=== PATIENT | male | born 1970 | race Caucasian/White ===

== ENCOUNTER 2017-02-20 06:47 | Emergency (ER) | payer BC, OTHER ==
[~2017-02-20] VITALS: Ht 188 cm; Wt 98.0 kg
[2017-02-20 06:49] VITALS: Ht 188 cm; Wt 98.0 kg
[2017-02-20] MEDS ORDERED: LORAZEPAM 2 MG INJ IV STA (07:18)
--- NOTE | 2017-02-20 08:03 | RADRPT ---
PROCEDURE: CT brain without contrast CLINICAL INDICATION: Seizure with head injury TECHNIQUE: CT of the brain without contrast performed on a multidetector CT scanner, with multiplan ar reformats. One or more of the following dose reduction techniques were used: Automated exposure control, adjustment in mA and / or kV according to patient size, use of iterative reconstructive francis hnique. CTDIvol = 45 mGy; DLP = 810 mGy-cm. COMPARISON: None available FINDINGS: There is encephalomalacia with associated minimal calcification in the left frontoparietal region wi th adjacent gliosis. No acute intracranial hemorrhage is identified. No extra-axial fluid collecti on is seen. There is no mass effect. No midline shift is identified. Ventricles and sulci are mildly enlarged compatible with volume loss. Kohler-white differentiation is otherwise preserved. Osseous structures are unremarkable. Right mastoid air cells are partially opacified. IMPRESSION: 1. No evidence of acute intracranial pathology. 2. Left frontoparietal encephalomalacia. 3. Mild volume loss. RPTAT: VV .Elias Tirado MD, MD Date Time Electronically viewed and signed by .Elias Tirado MD, on 02/20/2017 08:03 .O/
[2017-02-20 08:37] LABS: ADD SCAN DIFF NO
[2017-02-20 08:39] LABS: BASOPHILS % 0.2 % (0.0-2.0); EOSINOPHILS # 0.1 10^3/ul (0.0-0.5); EOSINOPHILS % 1.7 % (0.0-7.0); HEMATOCRIT 34.1 % (42.0-52.0); HEMOGLOBIN 10.7 g/dl (14.0-18.0); LYMPHOCYTES # 1.1 10^3/ul (0.8-2.9); LYMPHOCYTES % 16.5 % (15.0-51.0); MEAN CORPUSCULAR HEMOGLOBIN 30.2 pg (29.0-33.0); MEAN CORPUSCULAR HGB CONC 31.4 g/dl (32.0-37.0); MEAN CORPUSCULAR VOLUME 96.3 fl (82.0-101.0); MEAN PLATELET VOLUME 9.6 fl (7.4-10.4); MONOCYTE # 0.8 10^3/ul (0.3-0.9); MONOCYTES % 11.6 % (0.0-11.0); NEUTROPHIL # 4.6 10^3/ul (1.6-7.5); NEUTROPHILS % 69.5 % (39.0-77.0); PLATELET COUNT 258 10^3/UL (140-415); RED BLOOD COUNT 3.54 10^6/ul (4.70-6.10); RED CELL DISTRIBUTION WIDTH 15.8 % (11.5-14.5); WHITE BLOOD COUNT 6.7 10^3/ul (4.8-10.8)
[2017-02-20 08:51] LABS: CREATININE 0.57 mg/dl (0.61-1.24)
[2017-02-20 08:52] LABS: CALCIUM 9.4 mg/dl (8.4-10.2)
--- NOTE | 2017-02-20 09:08 | ERD ---
ER Documentation Chief Complaint Date/Time DATE: 02/20/17 TIME: 08:56 Chief Complaint had seizure, hit head, no ko HPI 46-year-old male with a history of CVA with right-sided deficits and seizure disorder, presenting after a seizure at his board and care. Patient is very anxious and angry and keeps yelling at me. Every time I ask him a question, he states "I don't know, I just had a seizure. " For the lady with him, she owns the house where he lives. He fell out of bed and had a seizure. He does take Keppra for seizures. Patient manages his own medications. He is unable to tell me whether he took any of his medications today. ROS Review of systems is limited secondary to patient's mental status Medications Home Meds Unable to Obtain Active Prescriptions or Reported Meds Allergies Allergies: Coded Allergies: coumarin (Unverified Allergy, Unknown, PT SAYS HES ALLERGIC, 02/20/17) PMhx/Soc Medical and Surgical Hx: Unable to obtain History of Surgery: No Anesthesia Reaction: No Hx Neurological Disorder: Yes (CVA, seizure disorder) Hx Respiratory Disorders: No Hx Cardiac Disorders: No Hx Psychiatric Problems: Yes (anxiety, depression) Hx Miscellaneous Medical Probl: No Hx Alcohol Use: No Hx Substance Use: No Hx Tobacco Use: No Smoking Status: Never smoker FmHx Family History: other (unable to obtain) Physical Exam Vitals Vital Signs Date Time Temp Pulse Resp B/P Pulse Ox O2 Delivery O2 Flow Rate FiO2 02/20/17 06:49 98.1 125 24 152/68 99 Physical Exam Const: Agitated, in no apparent distress, nontoxic Head: No hematomas, multiple superficial facial abrasions on forehead and bridge of nose. No bony tenderness to palpation Eyes: Normal Conjunctiva, PERRLA, EOMI ENT: Normal External Ears, Nose and Mouth. Neck: Full range of motion..~ No meningismus. Resp: Clear to auscultation bilaterally Cardio: Regular rate and rhythm, no murmurs Abd: Soft, non tender, non distended. Normal bowel sounds Skin: No petechiae or rashes Back: No midline or flank tenderness Ext: No cyanosis, or edema. Contracted right upper extremity Neur: Awake and alert, oriented to self and place, moving all other extremities except the right upper extremity Psych: Anxious, agitated Result Diagram: 02/20/17 0825 02/20/17 0825 Results 24 hrs Laboratory Tests Test 02/20/17 08:25 02/20/17 08:30 02/20/17 10:10 White Blood Count 6.710^3/ul Red Blood Count 3.5410^6/ul Hemoglobin 10.7g/dl Hematocrit 34.1% Mean Corpuscular Volume 96.3fl Mean Corpuscular Hemoglobin 30.2pg Mean Corpuscular Hemoglobin Concent 31.4g/dl Red Cell Distribution Width 15.8% Platelet Count 36143^3/UL Mean Platelet Volume 9.6fl Neutrophils % 69.5% Lymphocytes % 16.5% Monocytes % 11.6% Eosinophils % 1.7% Basophils % 0.2% Nucleated Red Blood Cells % 0.0/100WBC Neutrophils # 4.610^3/ul Lymphocytes # 1.110^3/ul Monocytes # 0.810^3/ul Eosinophils # 0.110^3/ul Basophils # 0.010^3/ul Nucleated Red Blood Cells # 0.010^3/ul Sodium Level 140mmol/L Potassium Level 4.0mmol/L Chloride Level 103mmol/L Carbon Dioxide Level 26mmol/L Anion Gap 15 Blood Urea Nitrogen 15mg/dl Creatinine 0.57mg/dl Glucose Level 96mg/dl Calcium Level 9.4mg/dl Bedside Glucose 82mg/dL Urine Color LT. YELLOW Urine Clarity CLEAR Urine pH 6.5 Urine Specific [place] <=1.005 Urine Ketones NEGATIVE Urine Nitrite NEGATIVE Urine Bilirubin NEGATIVE Urine Urobilinogen 1.0 E.U./dL Urine Leukocyte Esterase NEGATIVE Urine Hemoglobin NEGATIVE Urine Glucose NEGATIVE% Urine Total Protein NEGATIVE Current Medications Medications (Trade) Dose Ordered Sig/Angi Route PRN Reason Start Time Stop Time Status Last Admin Dose Admin Lorazepam (Ativan) 1 mg ONCE STAT IV 02/20/17 07:18 02/20/17 07:19 DC 02/20/17 07:36 Levetiracetam (Keppra) 500 mg ONCE ONCE PO 02/20/17 09:30 02/20/17 09:31 DC 02/20/17 09:48 Metoclopramide HCl (Reglan) 10 mg ONCE ONCE IV 02/20/17 10:30 4/17/17 10:30 DC Procedures/MDM EMERGENT LABS AND DIAGNOSTIC STUDIES: Lab Results above were reviewed and interpreted by me. CBC and BMP within normal limits Urinalysis does not show evidence of infection 12-lead EKG was interpreted by Lupe Bah MD: Normal Sinus Rhythm with ventricular rate of 86 beats per minute Normal axis Normal intervals Anterior ST elevations, pattern suggestive of benign early repol No acute ST or T wave changes suggestive of acute ischemia or STEMI. Radiology Results as interpreted by Radiology below were reviewed by Stephany Bah MD: CT head: No acute abnormalities, left frontoparietal encephalomalacia Initial Nursing notes reviewed. Previous Medical Records requested via the Electronic Health Record. EMERGENCY DEPARTMENT COURSE / MEDICAL DECISION MAKING: Patient with a known seizure disorder is presenting with an episode of a breakthrough seizure. He is afebrile and vitals are stable. He has back to his normal mental status per caregiver. Patient has no current complaints. Given his agitation, 1 mg of Ativan was given as the patient takes this daily at home. His symptoms improved. Labs didn't show any acute abnormalities. Given his head trauma from the seizure, a CT head was done and was normal. There does not seem to be any obvious trigger to his seizure today. Keppra was given. Patient remained seizure-free while in the ED. He was observed for over 4 hours. I think the patient is stable for discharge back to his facility at this time. Return precautions were given. Departure Diagnosis: Primary Impression: Breakthrough seizure Condition: Stable RASHID BAH MD Feb 20, 2017 09:07
[2017-02-20] MEDS ORDERED: LEVETIRACETAM 500 MG TAB PO ONE (09:30)
[2017-02-20] MEDS ORDERED: METOCLOPRAMIDE 10 MG INJ IV ONE (10:30)
[2017-02-20 10:59] LABS: ADD UMIC NO; URINE BILIRUBIN (Dip) NEGATIVE (NEGATIVE); URINE BLOOD (Dip) NEGATIVE (NEGATIVE); URINE COLOR LT. YELLOW (YELLOW); URINE GLUCOSE (Dip) NEGATIVE (NEGATIVE); URINE KETONES (Dip) NEGATIVE (NEGATIVE); URINE LEUKOCYTE ESTERASE (Dip) NEGATIVE (NEGATIVE); URINE NITRITE (Dip) NEGATIVE (NEGATIVE); URINE TOTAL PROTEIN (Dip) NEGATIVE (NEGATIVE); URINE UROBILINOGEN (Dip) 1.0 E.U./dL (0.1-1.0)
[2017-02-20 14:22] VITALS: BP 121/76; PULSE 86; RESP 20; TEMP 98.3
== END 2017-02-20 14:24 | disposition home or self-care (01) ==
LOC: E/R 06:47
DX: G40.909 Epilepsy, unspecified, not intractable, without status epilepticus (principal); R40.2252 Coma scale, best verbal response, oriented, at arrival to emergency department; G93.89 Other specified disorders of brain; R40.2142 Coma scale, eyes open, spontaneous, at arrival to emergency department; R40.2362 Coma scale, best motor response, obeys commands, at arrival to emergency department
CPT/HCPCS: 70450; 80048; 81003; 82962; 85025; 93005; 96374; J2060; Z7502; Z7610

== ENCOUNTER 2018-05-24 20:53 | Emergency (ER) | END 2018-05-25 00:21 | disposition home or self-care (01) ==

== ENCOUNTER 2018-05-25 13:53 | Emergency (ER) | END 2018-05-26 01:20 | disposition home or self-care (01) ==